=== PATIENT | male | born 1995 | race Caucasian/White ===

== ENCOUNTER 2019-10-22 11:22 | Emergency (ER) | payer OTHER, SELFPAY ==
[2019-10-22 11:49] VITALS: BP 130/76; PULSE 85; RESP 16; TEMP 36.7; O2SAT 99
--- NOTE | 2019-10-22 11:52 | ED.GENADULT ---
HPI - General Adult General Chief complaint: Recheck/Abnormal Lab/Rx Stated complaint: Medication Refill Time Seen by Provider: 10/22/19 11:45 Source: patient and RN notes reviewed Mode of arrival: ambulatory Limitations: no limitations History of Present Illness HPI narrative: Patient presents today requesting a medication refill. He was admitted to [facility] in [place] 3 days ago with chest pain. He had a cardiac cath and received 2 stents. He was discharged from the hospital with 9 new prescriptions for medications. Since patient has [place] Medicaid, the Medicaid will not cover these medications because they were written by [place] physician. Patient comes in today requesting that these medications be prescribed by an [place] provider so he can get them filled and start taking them as soon as possible. He has provided the prescriptions today. Prescriptions include: TriCor, NovoLog, Humulin in, metformin, aspirin, Lipitor, carvedilol, Plavix, Actos. Patient has history of type 2 diabetes, but has been off insulin for the past 3 to 5 years until now. MD complaint: Medication refill Related Data Home Medications Medication Instructions Recorded Confirmed Humulin N NPH U-100 Insulin 10/22/19 Novolog 2 - 12 units IM 10/22/19 aspirin 10/22/19 atorvastatin 10/22/19 carvedilol 10/22/19 clopidogrel 10/22/19 fenofibrate nanocrystallized 145 mg PO DAILY 10/22/19 10/22/19 gabapentin 10/22/19 lisinopril 10/22/19 metformin mg 10/22/19 pioglitazone mg 10/22/19 Allergies Allergy/AdvReac Type Severity Reaction Status Date / Time No Known Allergies Allergy Unverified 07/22/17 16:54 Review of Systems Review of Systems: Narrative: CONSTITUTIONAL: Denies body aches, fever, chills, or sweats. EYES: Denies visual changes, redness, or discharge. ENT: Denies rhinorrhea, congestion, sore throat, or otalgia. CARDIOVASCULAR: Denies chest pain, palpitations, or edema. RESPIRATORY: Denies cough or dyspnea. GASTROINTESTINAL: Denies abdominal pain, nausea, vomiting, or diarrhea. GENITOURINARY: Denies dysuria or hematuria. SKIN: Denies rash, itching, or wounds. MUSCULOSKELETAL: Denies back pain, joint pain, or myalgia. NEUROLOGIC: Denies headache, numbness, tingling, or weakness. PSYCH: Denies depression or anxiety. [facility]LY [facility] Past Medical History Medical History (Updated 10/22/19 @ 11:56 by Felicia Infante, [facility], ) Type 2 diabetes mellitus Surgical History Surgical History (Updated 10/22/19 @ 11:55 by Felicia Infante, [facility], ) H/O heart artery stent History of cardiac catheterization Family History Family History (Updated 08/17/14 @ 08:55 by DOCTOR UNKNOWN) Father Acute myocardial infarction Social History Social History Smoking status: Never smoker Comments At time of signature, I have reviewed and agree with nursing past medical, surgical, social and family history unless otherwise noted. Please see nursing chart for further information. There is no relevant family history pertinent to the presenting complaint Exam Narrative: Exam Narrative: GENERAL: Well-appearing, well-nourished, and in no acute distress. HEAD: Normocephalic, atraumatic. EYES: EOMI. No redness or drainage. Conjunctivae normal. ENT: Mucous membranes pink and moist. NECK: Normal AROM. CHEST: No respiratory distress. Clear to auscultation. HEART: Regular rate and rhythm. No murmur appreciated. Normal peripheral pulses. EXTREMITIES: Normal range of motion. No edema. SKIN: Warm, dry, no rash. Capillary refill normal. Normal skin turgor. NEURO: No focal deficits. Alert and oriented x3. Gait steady. PSYCH: Normal affect. No signs of depression or anxiety. Medical Decision Making Differential Diagnosis Differential Diagnosis: medication fill Critical Care Time Critical Care Time Critical Care Time: No Discharge Plan Discharge Clinical Impression: Encounter for medication refill Co
== END 2019-10-22 12:05 | disposition home or self-care (01) ==
PROVIDERS: Emergency Provider Nurse Practitioner
DX: Z76.0 Encounter for issue of repeat prescription (principal); E11.9 Type 2 diabetes mellitus without complications; Z95.5 Presence of coronary angioplasty implant and graft
CPT/HCPCS: 99211; G0463

== ENCOUNTER 2021-07-18 20:47 | Emergency (ER) | payer OTHER, SELFPAY ==
[2021-07-18 20:54] VITALS: BP 137/86; PULSE 74; RESP 16; TEMP 36.6; O2SAT 100
--- NOTE | 2021-07-18 20:57 | ECG_ITS ---
Measurements Intervals [place] Rate: 67 P: 33 VA: 158 QRS: 26 QRSD: 101 T: 31 QT: 365 QTc: 386 Interpretive Statements SINUS RHYTHM ST ELEVATION IN DIFFUSE LEADS, PROBABLY EARLY REPOLARIZATION BASELINE ARTIFACT- I, II, AVR BORDERLINE ECG Electronically Signed On 07-19-2021 7:00:33 CDT by Darrick Vallecillo D.O.
[2021-07-18 21:30] LABS: Basophils Absolute Auto 0.1 K/mm3 (0.0-0.1); Basophils Percent Auto 0.8 % (0.2-1.2); Eosinophils Absolute Auto 0.3 K/mm3 (0-0.3); Eosinophils Percent Auto 2.5 % (0-4.4); Hematocrit 43.7 % (42.0-52.0); Hemoglobin 14.8 g/dL (14.0-18.0); Immature Granulocyte Absolute 0.06 K/mm3 (0.00-0.031); Immature Granulocyte Percent A 0.5 % (0-0.5); Lymphocytes Absolute Auto 1.97 K/mm3 (0.9-3.2); Mean Corpuscular HGB Conc 33.9 g/dl (32-36); Mean Corpuscular Hemoglobin 29.5 pg (26-34); Mean Corpuscular Volume 87.2 fl (80-100); Mean Platelet Volume 11.6 fl (7.4-10.4); Monocytes Absolute Auto 0.8 K/mm3 (0.1-0.6); Neutrophils Absolute Auto 8.4 K/mm3 (1.3-6.7); Neutrophils Percent Auto 72.2 % (45.5-73.1); Platelet Count Result 275 k/mm3 (150-375); Red Blood Count 5.01 M/mm3 (4.6-6.20); Red Cell Distribution Width 12.3 % (11.5-14.5); White Blood Count 11.6 K/mm3 (4.5-10.0)
[2021-07-18 21:38] LABS: Alanine Aminotransferase 35 U/L (6-50); Albumin Level 4.6 g/dL (3.5-5.1); Alkaline Phosphatase 63 U/L (38-126); Anion Gap 10 mmol/L (8-16); Aspartate Amino Transferase 28 U/L (17-59); Bilirubin,Total 0.5 mg/dL (0.2-1.3); Blood Urea Nitrogen 16 mg/dL (9-20); Calcium 9.6 mg/dL (8.4-10.2); Carbon Dioxide 27 mmol/L (22-30); Chloride 103 mmol/L (98-107); Estimated CRCL calculation 107 ml/min; Estimated Glomerular Filt Rate > 60; Glucose 226 mg/dL (65-110); Lipase 81 U/L (23-300); Potassium 4.3 mmol/L (3.4-5.0); Sodium 140 mmol/L (137-145)
[2021-07-18 21:42] LABS: Prothrombin Time 12.8 Seconds (11.1-14.7)
[2021-07-18 21:43] LABS: Partial Thromboplastin Time 27.6 SECONDS (22.3-36.8)
[2021-07-18 21:46] VITALS: BP 130/87; PULSE 71; RESP 16; O2SAT 99
[2021-07-18 21:50] LABS: Troponin I < 0.012 ng/mL (0.000-0.034)
[2021-07-18 22:01] VITALS: BP 133/79; PULSE 69; RESP 18; O2SAT 100
--- NOTE | 2021-07-18 23:27 | ED.GENADULT ---
HPI - General Adult General Chief complaint: Unspecified <ARABELLA Anglin Last Filed: 07/19/21 03:56> Stated complaint: starting sweating & puking after eating taco juarez <ARABELLA Anglin Last Filed: 07/19/21 03:56> Time Seen by Provider: 07/18/21 21:21 <ARABELLA Anglin Last Filed: 07/19/21 03:56> Source: patient <ARABELLA Anglin Last Filed: 07/19/21 03:56> Mode of arrival: ambulatory <ARABELLA Anglin Last Filed: 07/19/21 03:56> Limitations: no limitations <ARABELLA Anglin Last Filed: 07/19/21 03:56> History of Present Illness HPI narrative: Patient is a 25-year-old male who presents to the ED with report of nausea and vomiting. Patient reports he ate [employer] around 630 to 7 PM tonight. Approximately 35 to 40 minutes later he went to have a bowel movement. While sitting on the toilet, he began having diaphoresis. Denied any significant abdominal pain or diarrhea at that time. No rectal bleeding. After having the bowel movement, he went to his living room where he then states he had to run back to the bathroom to vomit. He states he felt very nauseous at that time. Patient vomited a couple times and vomited his entire meal. He decided to go to the hospital and went to [facility] ED first but states the wait was too long so he decided to come here. On his way here he began feeling much better. Patient denies any symptoms currently. Denies any abdominal pain, headache, dizziness, lightheadedness, chest pain, shortness of breath, further nausea, numbness, tingling, weakness, vision changes. <ARABELLA Anglin Last Filed: 07/19/21 03:56> Related Data Home medications: Home Medications Medication Instructions Recorded Confirmed Humulin N NPH U-100 Insulin 10/22/19 Novolog 2 - 12 units IM 10/22/19 aspirin 10/22/19 atorvastatin 10/22/19 carvedilol 10/22/19 clopidogrel 10/22/19 fenofibrate nanocrystallized 145 mg PO DAILY 10/22/19 10/22/19 gabapentin 10/22/19 lisinopril 10/22/19 metformin mg 10/22/19 pioglitazone mg 10/22/19 <Desire Barber PA-C - Last Filed: 07/19/21 03:56> Allergies/adverse reactions: Allergies Allergy/AdvReac Type Severity Reaction Status Date / Time No Known Allergies Allergy Unverified 07/22/17 16:54 <Desire Barber PA-C - Last Filed: 07/19/21 03:56> Review of Systems Review of Systems: CONSTITUTIONAL: Reports diaphoresis. Denies fever, chills. EYES: Denies visual changes. ENT: Denies rhinorrhea, congestion, sore throat. CARDIOVASCULAR: Denies chest pain. RESPIRATORY: Denies cough or dyspnea. GASTROINTESTINAL: Reports nausea, vomiting. Denies abdominal pain, rectal bleeding, or diarrhea. GENITOURINARY: Denies dysuria or hematuria. NEUROLOGIC: Denies headache, dizziness, lightheadedness, numbness, or weakness. <Desire Barber PA-C - Last Filed: 07/19/21 03:56> All systems reviewed & are unremarkable except as noted in HPI and below <Desire Barber PA-C - Last Filed: 07/19/21 03:56> [facility] Past Medical History Medical History: Medical History Type 2 diabetes mellitus <Desire Barber PA-C - Last Filed: 07/19/21 03:56> Surgical History Surgical History: Surgical History H/O heart artery stent History of cardiac catheterization <Desire Barber PA-C - Last Filed: 07/19/21 03:56> Family History Family History: Family History (Updated 08/17/14 @ 08:55 by DOCTOR UNKNOWN) Father Acute myocardial infarction <Desire Barber PA-C - Last Filed: 07/19/21 03:56> Social History Social History: Social History Smoking status: Never smoker <Desire Barber PA-C - Last Filed: 07/19/21 03:56> Exam Narrative: GENERAL: Well appearing, well-nourished, non-toxic, in no acute dis
[2021-07-18 23:55] VITALS: BP 136/91; PULSE 78; RESP 18; O2SAT 99
== END 2021-07-19 | disposition home or self-care (01) ==
PROVIDERS: Emergency Provider Emergency Medicine; PCP Nurse Practitioner Family
DX: R11.2 Nausea with vomiting, unspecified (principal); E11.9 Type 2 diabetes mellitus without complications; Z79.4 Long term (current) use of insulin; Z79.84 Long term (current) use of oral hypoglycemic drugs; Z79.82 Long term (current) use of aspirin; R94.31 Abnormal electrocardiogram [ECG] [EKG]
CPT/HCPCS: 36415; 80053; 83690; 84484; 85025; 85610; 85730; 93005; 99284

== ENCOUNTER 2022-08-26 20:48 | Emergency (ER) | payer MEDICAID, SELFPAY ==
--- NOTE | ~2022-08-26 | XR_ITS ---
Portable chest x-ray Comparison: 10/20/2018 Clinical History: Chest pain Findings: Lungs are clear, without focal consolidation or pleural effusion. Cardiomediastinal silho uette is stable. Bones and soft tissues are unremarkable. Impression: Normal chest. Reviewed, dictated and finalized at location . Impression: Normal chest.
--- NOTE | 2022-08-26 20:50 | ECG_ITS ---
Measurements Intervals [place] Rate: 81 P: 44 [place]: 147 QRS: 35 QRSD: 89 T: 33 QT: 341 QTc: 398 Interpretive Statements SINUS RHYTHM COMPARED TO ECG 07/18/2021 21:01:42 NO SIGNIFICANT CHANGES Electronically Signed On 08-27-2022 11:41:39 CDT by Eddie Moise M.D.
[2022-08-26 20:57] VITALS: BP 144/89; PULSE 89; RESP 14; TEMP 36.5; O2SAT 98
[2022-08-26 21:18] LABS: Basophils Absolute Auto 0.1 K/mm3 (0.0-0.1); Eosinophils Absolute Auto 0.3 K/mm3 (0-0.3); Eosinophils Percent Auto 3.8 % (0-4.4); Hematocrit 44.5 % (42.0-52.0); Hemoglobin 15.7 g/dL (14.0-18.0); Immature Granulocyte Absolute 0.03 K/mm3 (0.00-0.031); Immature Granulocyte Percent A 0.4 % (0-0.5); Lymphocytes Absolute Auto 2.38 K/mm3 (0.9-3.2); Lymphocytes Percent Auto 30.5 % (18.3-44.2); Mean Corpuscular HGB Conc 35.3 g/dl (32-36); Mean Corpuscular Hemoglobin 29.6 pg (26-34); Mean Platelet Volume 12.4 fl (7.4-10.4); Monocytes Absolute Auto 0.5 K/mm3 (0.1-0.6); Monocytes Percent Auto 6.9 % (2.6-8.5); Neutrophils Absolute Auto 4.5 K/mm3 (1.3-6.7); Neutrophils Percent Auto 57.4 % (45.5-73.1); Platelet Count Result 253 k/mm3 (150-375); Red Cell Distribution Width 12.3 % (11.5-14.5); White Blood Count 7.8 K/mm3 (4.5-10.0)
[2022-08-26 21:28] LABS: Alanine Aminotransferase 55 U/L (6-50); Albumin Level 4.2 g/dL (3.5-5.1); Alkaline Phosphatase 109 U/L (38-126); Anion Gap 5 mmol/L (8-16); Aspartate Amino Transferase 49 U/L (17-59); Bilirubin,Total 0.7 mg/dL (0.2-1.3); Blood Urea Nitrogen 12 mg/dL (9-20); Calcium 9.4 mg/dL (8.4-10.2); Carbon Dioxide 29 mmol/L (22-30); Chloride 101 mmol/L (98-107); Estimated CRCL calculation 153 ml/min; Estimated Glomerular Filt Rate > 60; Glucose 343 mg/dL (65-110); INR 0.9; Lipase 112 U/L (23-300); Partial Thromboplastin Time 28.6 SECONDS (22.3-36.8); Potassium 4.2 mmol/L (3.4-5.0); Prothrombin Time 12.1 Seconds (11.1-14.7); Sodium 135 mmol/L (137-145)
[2022-08-26 21:39] LABS: Troponin I < 0.012 ng/mL (0.000-0.034)
[2022-08-27 00:08] LABS: Troponin I < 0.012 ng/mL (0.000-0.034)
[2022-08-27 00:46] LABS: D Dimer < 0.27 ug/mL (<0.48)
--- NOTE | 2022-08-27 00:55 | ED.CHESTPAIN ---
HPI - Chest Pain General Chief Complaint: Chest Pain Stated Complaint: cp Time Seen by Provider: 08/26/22 23:40 History of Present Illness HPI narrative: 26-year-old male with history of coronary disease and 3 cardiac stents presented the emergency department for evaluation of intermittent chest pain. Patient states over the course of the last 5 days he has had short lasting intermittent chest pain. Patient states this pain is not similar to his previous [place] pain. Patient states his previous [place] pain was constant and unrelenting. Patient describes his pain as very brief lasting only just a few seconds and is intermittent. Patient denies any associated nausea vomiting or diarrhea. Related Data Home Medications Medication Instructions Recorded Confirmed Humulin N NPH U-100 Insulin 10/22/19 Novolog 2 - 12 units IM 10/22/19 aspirin 81 mg tablet,delayed 10/22/19 release atorvastatin 40 mg tablet 10/22/19 carvedilol 3.125 mg tablet 10/22/19 clopidogrel 75 mg tablet 10/22/19 fenofibrate nanocrystallized 145 145 mg PO DAILY 10/22/19 10/22/19 mg tablet gabapentin 300 mg capsule 10/22/19 lisinopril 5 mg tablet 10/22/19 metformin 500 mg tablet mg 10/22/19 pioglitazone 15 mg tablet mg 10/22/19 Allergies Allergy/AdvReac Type Severity Reaction Status Date / Time No Known Allergies Allergy Unverified 07/22/17 16:54 Review of Systems Review of Systems: All systems reviewed & are unremarkable except as noted in HPI and below PMFSH Past Medical History Medical History Type 2 diabetes mellitus Surgical History Surgical History H/O heart artery stent History of cardiac catheterization Family History Family History (Updated 08/17/14 @ 08:55 by DOCTOR UNKNOWN) Father Acute myocardial infarction Social History Social History Smoking status: Never smoker Exam Narrative: APPEARANCE: Well appearing, no pain, no distress, well-nourished. HEAD: normocephalic, atraumatic. EYES: PERRLA/EOMI, conjunctivae clear. NOSE: Normal no drainage NECK: Supple. No adenopathy, no masses. RESPIRATORY: Airway patent, respirations nonlabored. Clear to auscultation bilaterally, no rales, rhonchi, wheezing. CARDIOVASCULAR: Regular rate and rhythm without murmurs rubs or gallops. ABDOMINAL: Soft, nontender, nondistended, normal bowel sounds MUSCULOSKELETAL: Moves all extremities. Strength/ROM intact, No edema, No calf tenderness. NEURO: Alert. Cranial nerves II through XII intact. Good gait. Good coordination SKIN: Warm, dry. Normal Color Course Course Emergency Course: 26-year-old male with history of coronary disease presented the emergency department for evaluation of atypical short lasting chest pain. Patient is afebrile with no leukocytosis and a hemoglobin of 15.7. Patient did have some elevated blood sugar at 343. Patient's troponins were negative at baseline and 3 hours. Patient did not have an elevated lipase. Chest x-ray showed no acute cardiopulmonary normality. EKG showed normal sinus rhythm with no evidence of ischemia. Patient's D-dimer was not elevated. Patient's pain would be very atypical for cardiac angina and patient states this did not feel like his previous [place]. Patient was advised to take Tylenol ibuprofen for pain control and to have close follow-up with his primary care physician for additional outpatient cardiac testing. Patient and family were comfortable with the plan for discharge and close follow-up. All questions and concerns were addressed. Vital Signs Vital signs: Vital Signs Temperature 97.7 F 08/26/22 20:57 Pulse Rate 89 08/26/22 20:57 Respiratory Rate 14 08/26/22 20:57 Blood Pressure 144/89 H 08/26/22 20:57 Pulse Oximetry 98 08/26/22 20:57 Oxygen Delivery Room Air 08/26/22 20:57
[2022-08-27 01:26] VITALS: BP 126/96; PULSE 76; RESP 15; O2SAT 100
== END 2022-08-27 01:27 | disposition home or self-care (01) ==
PROVIDERS: Emergency Provider Emergency Medicine; PCP Nurse Practitioner Family
DX: R07.89 Other chest pain (principal); E11.9 Type 2 diabetes mellitus without complications; I25.10 Atherosclerotic heart disease of native coronary artery without angina pectoris; Z79.82 Long term (current) use of aspirin; Z79.84 Long term (current) use of oral hypoglycemic drugs
CPT/HCPCS: 36415; 71045; 80053; 83690; 84484; 85025; 85380; 85610; 85730; 93005; 99284

== ENCOUNTER 2022-11-02 14:29 | Emergency (ER) | payer OTHER, SELFPAY ==
[2022-11-02 14:30] VITALS: BP 139/84; PULSE 98; RESP 18; TEMP 36.2; O2SAT 99
--- NOTE | 2022-11-02 15:46 | ED.DENTAL ---
HPI - Dental/Oral General Chief complaint: Dental/Oral Stated complaint: tooth pain post extraction Time Seen by Provider: 11/02/22 15:46 Source: patient Mode of arrival: ambulatory Limitations: no limitations History of Present Illness HPI Narrative: Anurag was a 27-year-old male patient presenting to the clinic today with complaints of dental pain. He reports he had his left upper and left lower for molars extracted on . He has developed worsening of pain over the last few days. States now he feels as though his jaw swollen. He denies any fevers or chills. He denies seeing any discharge coming from these areas. Rates his pain 10 at 10 currently Related Data Home Medications Medication Instructions Recorded Confirmed Humulin N NPH U-100 Insulin 10/22/19 Novolog 2 - 12 units IM 10/22/19 aspirin 81 mg tablet,delayed 10/22/19 release atorvastatin 40 mg tablet 10/22/19 carvedilol 3.125 mg tablet 10/22/19 clopidogrel 75 mg tablet 10/22/19 fenofibrate nanocrystallized 145 145 mg PO DAILY 10/22/19 10/22/19 mg tablet gabapentin 300 mg capsule 10/22/19 lisinopril 5 mg tablet 10/22/19 metformin 500 mg tablet mg 10/22/19 pioglitazone 15 mg tablet mg 10/22/19 Allergies Allergy/AdvReac Type Severity Reaction Status Date / Time No Known Allergies Allergy Unverified 07/22/17 16:54 Review of Systems Review of Systems: Pertinent positives per HPI. Patient denies any fever, chills, rash, headache, visual changes, dizziness, cough, runny nose, sore throat, shortness of breath, chest pain, palpitations, nausea, vomiting, diarrhea, constipation, abdominal pain, or any urinary issues. VIC Past Medical History Medical History Type 2 diabetes mellitus Surgical History Surgical History H/O heart artery stent History of cardiac catheterization Family History Family History (Updated 08/17/14 @ 08:55 by DOCTOR UNKNOWN) Father Acute myocardial infarction Social History Social History Smoking status: Never smoker Comments At the time of my signature, I reviewed and agree with the nursing past medical, surgical, social, and family history. There is no relevant family history pertinent to the patient complaint. Exam Narrative: General: Well-developed, well nourished, in no apparent distress Head: Normocephalic, atraumatic Eyes: Pupils equally round and reactive to light bilaterally, EOM intact, sclera and conjunctive clear, no discharge, lids normal Ears: TMs intact and clear, ear canals clear, no drainage, grossly hearing normal. Nose: Nares patent, no discharge, no inflammation, no sinus tenderness. Mouth: Oropharynx without lesions or masses, poor dentition, MMM. dental extraction with swelling to the left upper posterior molar and the left lower posterior molar with redness- no obvious discharge Neck: Supple, trachea midline, no enlargement of anterior or posterior cervical nodes, no thyroid masses or goiter palpable. Cardio: Regular rate and rhythm, s1 and s2 normal, no murmur appreciated. Resp: Clear to auscultation bilaterally anteriorly and posteriorly, no rhonchi, rales, wheezing or rubs Course Course Emergency Course: Portions of this record may have been created with voice recognition software. Vital Signs Vital signs: Vital Signs Temperature 36.2 C L 11/02/22 14:30 Pulse Rate 98 11/02/22 14:30 Respiratory Rate 18 11/02/22 14:30 Blood Pressure 139/84 11/02/22 14:30 Pulse Oximetry 99 11/02/22 14:30 Temperature 36.2 C L 11/02/22 14:30 Pulse Rate 98 11/02/22 14:30 Respiratory Rate 18 11/02/22 14:30 Blood Pressure 139/84 11/02/22 14:30 Pulse Oximetry 99 11/02/22 14:30 Vital signs reviewed MDM - Dental/Oral MDM Narrative Medical decision
[2022-11-02] MEDS: KETOROLAC (*BKC) 60 MG/2 ML VIAL IM (16:16)
[2022-11-02 16:28] VITALS: BP 133/91; PULSE 81; RESP 20; O2SAT 100
== END 2022-11-02 16:30 | disposition home or self-care (01) ==
PROVIDERS: Emergency Provider Nurse Practitioner Family; PCP Nurse Practitioner Family
DX: K04.7 Periapical abscess without sinus (principal); E11.9 Type 2 diabetes mellitus without complications; Z79.4 Long term (current) use of insulin; Z23 Encounter for immunization
CPT/HCPCS: 90471; 99283; J1885

== ENCOUNTER 2023-01-15 16:05 | Emergency (ER) | payer OTHER, SELFPAY ==
--- NOTE | ~2023-01-15 | US_ITS ---
EXAMINATION: US venous doppler [facility] DATE: 01/15/2023 17:52 INDICATION: Left lower limb pain and swelling TECHNIQUE: Grayscale ultrasound images without and with compression and Doppler ultrasound images of the left lower extremity veins were obtained. COMPARISON: None. FINDINGS: The visualized portions of left common femoral vein, profunda (deep) femoral vein, femoral vein, popl iteal vein, peroneal veins, posterior tibial veins, gastrocnemius vein and greater saphenous vein out flow are patent. IMPRESSION: 1. No deep venous thrombosis in the left lower limb. Reviewed, dictated and finalized at location A. [employer] TEACHER
[2023-01-15 16:07] VITALS: BP 139/85; PULSE 88; RESP 20; TEMP 35.9; O2SAT 98
--- NOTE | 2023-01-15 19:07 | PC.NURSE ---
patient to desk and stated he was going to leave. advised to come back to ER if symptoms get worse.
== END 2023-01-15 19:31 | disposition left against medical advice (07) ==
LOC: ANHED 19:14
PROVIDERS: Emergency Provider Emergency Medicine; PCP Nurse Practitioner Family
DX: M25.562 Pain in left knee (principal)
CPT/HCPCS: 93971; 99199

== ENCOUNTER 2023-10-19 13:43 | Emergency (ER) | payer OTHER, SELFPAY ==
[2023-10-19 13:45] VITALS: BP 126/107; PULSE 108; RESP 18; TEMP 36.4; O2SAT 99
--- NOTE | 2023-10-19 14:22 | PC.NURSE ---
Pt continues to bleed from left lower jaw from tooth extraction site. Pt refuses to hold gauze on gums because it makes him gag. Takes blood thinner for previous cardiac surgery and was told not to stop blood thinners prior to procedure.
[2023-10-19 14:40] VITALS: BP 149/104; PULSE 109; RESP 24; O2SAT 100
[2023-10-19] MEDS: SODIUM CHLORIDE 0.9% IV 1,000 ML 999 ML IV CONT (14:42)
[2023-10-19 14:55] LABS: Anion Gap 14 mmol/L (4-12); Basophils Absolute Auto 0.1 K/mm3 (0.0-0.1); Basophils Percent Auto 0.6 % (0.2-1.2); Blood Urea Nitrogen 26 mg/dL (9-20); Calcium 9.5 mg/dL (8.4-10.2); Carbon Dioxide 20 mmol/L (22-30); Chloride 100 mmol/L (98-107); Eosinophils Absolute Auto 0.6 K/mm3 (0-0.3); Eosinophils Percent Auto 3.5 % (0-4.4); Estimated Glomerular Filt Rate 55; Glucose 271 mg/dL (65-110); Hemoglobin 14.5 g/dL (14.0-18.0); Immature Granulocyte Absolute 0.06 K/mm3 (0.00-0.031); Immature Granulocyte Percent A 0.3 % (0-0.5); Lymphocytes Percent Auto 14.3 % (18.3-44.2); Mean Corpuscular HGB Conc 34.5 g/dl (32-36); Mean Corpuscular Hemoglobin 29.8 pg (26-34); Mean Corpuscular Volume 86.4 fl (80-100); Monocytes Absolute Auto 1.6 K/mm3 (0.1-0.6); Neutrophils Absolute Auto 12.6 K/mm3 (1.3-6.7); Neutrophils Percent Auto 72.3 % (45.5-73.1); Platelet Count Result 309 k/mm3 (150-375); Potassium 4.5 mmol/L (3.4-5.0); Red Blood Count 4.86 M/mm3 (4.6-6.20); Red Cell Distribution Width 12.4 % (11.5-14.5); Sodium 134 mmol/L (137-145); White Blood Count 17.5 K/mm3 (4.5-10.0)
[2023-10-19] MEDS: CELLULOSE OXIDIZED 2 x 3 INCH 1 PKT XX (14:55)
[2023-10-19] MEDS: MORPHINE SULFATE (*CRX) 2 MG/ML INJ 4 MG (14:55)
[2023-10-19] MEDS: ONDANSETRON INJ 4 MG/2 ML VIAL IV PUSH (14:55)
[2023-10-19 14:56] LABS: Prothrombin Time 13.6 Seconds (11.1-14.7)
[2023-10-19 14:57] LABS: Partial Thromboplastin Time 26.3 Seconds (22.3-36.8)
--- NOTE | 2023-10-19 16:02 | PC.NURSE ---
No further bleeding. Awaiting dispo.
[2023-10-19] MEDS: HYDROmorphone HCL INJ (*CRX) 1 MG/ML SYR 0.5 MG IV PUSH (16:35)
[2023-10-19 17:26] VITALS: BP 154/112; PULSE 97; RESP 16; TEMP 36.6; O2SAT 100
[2023-10-19] MEDS: SODIUM CHLORIDE 0.9% IV 250 ML 30 ML IV CONT (17:30)
[2023-10-19] MEDS: TUBING, BLOOD SET 1 EACH XX (17:30)
[2023-10-19 17:43] VITALS: BP 169/114; PULSE 102; RESP 18; TEMP 36.6; O2SAT 97
--- NOTE | 2023-10-19 18:02 | ED.DENTAL ---
HPI - Dental/Oral General Chief complaint: Dental/Oral Stated complaint: oral bleeding post tooth pulling Time Seen by Provider: 10/19/23 14:14 Source: patient History of Present Illness HPI Narrative: 28 YEARS OLD WHITE MALE CAME TO THE ED BY PRIVATE CAR COMPLAINING OF ORAL BLEEDING AFTER DENTAL EXTRACTION OF THE LEFT LOWER SIDE 2 HOURS AGO. PATIENT REPORT THE BLEEDING STARTED 30 MINUTES AFTER LEAVING THE CLINIC, UNABLE TO GET HOLD OF HIS DENTIST. PATIENT ON PLAVIX FOR CARDIAC DISEASE. PATIENT REPORT QUITE A BIT OF BLOOD LOSS AND BLOOD CLOTS FOR THE LAST 1-1/2 HOUR. Related Data Home Medications Medication Instructions Recorded Confirmed Humulin N NPH U-100 Insulin 10/22/19 Novolog 2 - 12 units IM 10/22/19 aspirin 81 mg tablet,delayed 10/22/19 release atorvastatin 40 mg tablet 10/22/19 carvedilol 3.125 mg tablet 10/22/19 clopidogrel 75 mg tablet 10/22/19 fenofibrate nanocrystallized 145 145 mg PO DAILY 10/22/19 10/22/19 mg tablet gabapentin 300 mg capsule 10/22/19 lisinopril 5 mg tablet 10/22/19 metformin 500 mg tablet mg 10/22/19 pioglitazone 15 mg tablet mg 10/22/19 Allergies Allergy/AdvReac Type Severity Reaction Status Date / Time No Known Allergies Allergy Verified 10/19/23 14:11 Review of Systems Review of Systems: All systems reviewed & are unremarkable except as noted in HPI and below PMFSH Past Medical History Medical History Type 2 diabetes mellitus Surgical History Surgical History H/O heart artery stent History of cardiac catheterization Family History Family History Father Acute myocardial infarction Social History Social History Smoking status: Never smoker Exam Narrative: GENERAL APPEARANCE: WELL-DEVELOPED, WELL-NOURISHED, HOLDING VOMITING BAG IN HANDS WITH BLOOD COMING OUT OF HIS MOUTH SKIN: PALE, DIAPHORETIC HEAD: NORMOCEPHALIC, NONTRAUMATIC EYES: CLEAR CONJUNCTIVA ENT: ACTIVE BLEEDING STATUS POST DENTAL EXTRACTION LEFT LOWER SIDE CHEST AND RESPIRATORY: AIRWAY PATENT, NO RESPIRATORY DISTRESS, NO ACCESSORY MUSCLE USE HEART: REGULAR RATE/RHYTHM NEUROLOGIC: ALERT AND ORIENTED ?3, EMBEDDED SOFTWARE MANAGER IS NORMAL TESTED, NO GROSS MOTOR DEFICIT Course Consultations Consultation #1: DR CARDENAS OROMAXILLARY SURGERY AT [facility] AGREED WITH OUR PLAN OF CONTINUOUS LOCALIZED PRESSURE AND POSSIBLE PLATELET TRANSFUSION.. HE REPORT THAT THIS CONDITION IS NOT A SURGICAL IN PATIENT DOES NOT NEED TO BE TRANSFERRED FOR THAT. Date: 10/19/23 Consultation #2: DR COTE AGREED WITH PLATELET TRANSFUSION AND IF IS NOT WORKING WE CAN TRY [facility] Date: 10/19/23 Vital Signs Vital signs: Vital Signs Temperature 36.4 C 10/19/23 13:45 Pulse Rate 108 H 10/19/23 13:45 Respiratory Rate 18 10/19/23 13:45 Blood Pressure 126/107 H 10/19/23 13:45 Pulse Oximetry 99 10/19/23 13:45 Oxygen Delivery Room Air 10/19/23 13:45 Temperature 36.6 C 10/19/23 17:43 Pulse Rate 102 H 10/19/23 17:43 Respiratory Rate 18 10/19/23 17:43 Blood Pressure 169/114 H 10/19/23 17:43 Pulse Oximetry 97 10/19/23 17:43 Oxygen Delivery Room Air 10/19/23 13:45 Procedures Other Procedure Procedure 1: Other Procedure: 15 MINUTES CONSTANT PRESSURE USING MY RIGHT THUMB ON THE GUM BLEEDER WITH REMARKABLE IMPROVEMENT MDM - Dental/Oral MDM Narrative Medical decision making narrative: PATIENT IS STATUS POST DENTAL EXTRACTION AND SUTURES PLACEMENT AT THE LEFT LOWER GUM. P
[2023-10-19 18:06] VITALS: BP 177/114; PULSE 97; RESP 18; TEMP 36.7; O2SAT 99
== END 2023-10-19 18:33 | disposition home or self-care (01) ==
PROVIDERS: Emergency Provider Emergency Medicine; PCP Nurse Practitioner Family
DX: K91.840 Postprocedural hemorrhage of a digestive system organ or structure following a digestive system procedure (principal); E11.9 Type 2 diabetes mellitus without complications; I51.9 Heart disease, unspecified; Z95.5 Presence of coronary angioplasty implant and graft; Z79.02 Long term (current) use of antithrombotics/antiplatelets
CPT/HCPCS: 36415; 36430; 80048; 85025; 85610; 85730; 86850; 86900; 86901; 96361; 96374; 96375; 99284; 99285; J1170; J2270; J2405; J7030; J7050; P9034